=== PATIENT | male | born 1970 | race Caucasian/White ===

== ENCOUNTER 2018-11-16 11:07 | Emergency (ER) | payer SELFPAY ==
[~2018-11-16] VITALS: Ht 165.1 cm; Wt 68.0 kg
[2018-11-16 17:32] VITALS: BP 104/73
== END 2018-11-16 17:30 | disposition home or self-care (01) ==
LOC: ER 11:07 → EDBD 11:07 → ER 17:30
DX: F10.229 Alcohol dependence with intoxication, unspecified (principal); Y90.9 Presence of alcohol in blood, level not specified
CPT/HCPCS: 99283

== ENCOUNTER 2024-04-09 16:19 | Emergency (ER) | payer SELFPAY ==
[~2024-04-09] VITALS: Ht 172.7 cm; Wt 64.0 kg
[2024-04-09 16:21] VITALS: TEMP 98.3; O2SAT 99
[2024-04-09 16:30] VITALS: BP 124/78; PULSE 110; RESP 16
== END 2024-04-09 19:03 | disposition home or self-care (01) ==
LOC: ER 16:19
DX: F10.229 Alcohol dependence with intoxication, unspecified (principal); Y90.9 Presence of alcohol in blood, level not specified
CPT/HCPCS: 99283

== ENCOUNTER 2024-04-10 07:59 | Emergency (ER) | payer SELFPAY ==
[~2024-04-10] VITALS: Ht 172.7 cm; Wt 68.0 kg
[2024-04-10 08:02] VITALS: BP 142/84; PULSE 85; RESP 18; TEMP 97.6; O2SAT 98
== END 2024-04-10 09:30 | disposition left against medical advice (07) ==
LOC: ER 08:05
DX: F10.20 Alcohol dependence, uncomplicated (principal); Z59.00 Homelessness unspecified; Y90.9 Presence of alcohol in blood, level not specified
CPT/HCPCS: 99283

== ENCOUNTER 2024-04-10 17:35 | Emergency (ER) | payer SELFPAY ==
[~2024-04-10] VITALS: Ht 177.8 cm; Wt 74.0 kg
[2024-04-10 17:38] VITALS: BP 120/76; PULSE 68; RESP 18; TEMP 98.2; O2SAT 100
== END 2024-04-10 23:54 | disposition home or self-care (01) ==
LOC: ER 17:35
DX: F10.129 Alcohol abuse with intoxication, unspecified (principal); Y90.9 Presence of alcohol in blood, level not specified
CPT/HCPCS: 82962; 99283

== ENCOUNTER 2024-04-12 21:13 | Inpatient (IN) | payer SELFPAY ==
[~2024-04-12] VITALS: Ht 61 cm; Wt 59.9 kg
[2024-04-13] VITALS (7 sets, daily range): BP systolic 100–122; BP diastolic 57–73; PULSE 70–91; RESP 17–20; TEMP 96.3–98.2
[2024-04-13 00:34] LABS: BASOPHILS % 0.2 % (0.0-2.0); DIFFERENTIAL COMMENT 0; EOSINOPHILS % 0.3 % (0.0-5.0); HEMATOCRIT. 38.1 % (42.0-52.0); HEMOGLOBIN. 12.5 g/dL (14.0-18.0); LYMPHOCYTES % 22.9 % (20.0-50.0); MEAN CORPUSCULAR HEMOGLOBIN 25.9 pg (28.0-32.0); MEAN CORPUSCULAR HGB CONC 32.7 g/dL (31.0-37.0); MEAN CORPUSCULAR VOLUME 79.1 fL (80.0-94.0); MEAN PLATELET VOLUME 8.5 fl (7.4-10.4); MONOCYTES % 6.6 % (2.0-8.0); PLATELET 123 x1000/uL (130-400); RED BLOOD CELL COUNT 4.81 mill/uL (4.7-6.1); RED CELL DISTRIBUTION WIDTH 21.9 % (11.6-14.6); WHITE BLOOD COUNT 6.1 x1000/uL (4.5-11.0)
[2024-04-13 00:40] LABS: CHLORIDE 97 mEq/L (98-107); POTASSIUM 4.1 mEq/L (3.5-5.1); SODIUM 138 mEq/L (136-145)
[2024-04-13 00:41] LABS: CALCIUM 8.8 mg/dL (8.7-10.4); CARBON DIOXIDE 28 mEq/L (21-32)
[2024-04-13 00:46] LABS: CREATININE 0.8 mg/dL (0.6-1.3); GLUCOSE 98 mg/dL (70-105); UREA NITROGEN BLOOD 12 mg/dL (9-23)
[2024-04-13] MEDS: SODIUM CHLORIDE 0.9% 1,000 ML IV ONE (01:39)
[2024-04-13] MEDS ORDERED: GUAIFENESIN 200MG/10ML SUGAR FREE UDC PO PRN (03:00)
[2024-04-13] MEDS ORDERED: DEXTROSE 50% WATER 50ML SYRINGE IV PRN (03:00)
[2024-04-13] MEDS ORDERED: ONDANSETRON HCL 4MG/2ML INJ IV PRN (03:00)
[2024-04-13] MEDS ORDERED: IPRATROPIUM/ALBUTEROL 0.5-3(2.5)MG/3ML NEB HHN PRN (03:00)
[2024-04-13] MEDS ORDERED: CLONIDINE 0.1MG TABLET PO PRN (03:00)
[2024-04-13] MEDS ORDERED: LORAZEPAM 0.5MG TABLET PO PRN (03:00)
[2024-04-13] MEDS ORDERED: ACETAMINOPHEN 325MG TABLET PO PRN (03:00)
[2024-04-13] MEDS ORDERED: DOCUSATE SODIUM 100MG CAPSULE PO PRN (03:00)
[2024-04-13] MEDS ORDERED: MAGNESIUM/ALUMINUM HYDROXIDE/SIMETHICONE 30ML UDC PO PRN (03:00)
[2024-04-13] MEDS: MVI, ADULT NO.1 10 ML, FOLIC ACID 1 MG, THIAMINE HCL 100 MG in SODIUM CHLORIDE 0.9% 1,0... IV SCH (04:56)
[2024-04-13 09:00] LABS: CARBON DIOXIDE 27 mEq/L (21-32); CHLORIDE 101 mEq/L (98-107); POTASSIUM 3.6 mEq/L (3.5-5.1); SODIUM 141 mEq/L (136-145)
[2024-04-13 09:01] LABS: CALCIUM 8.4 mg/dL (8.7-10.4)
[2024-04-13 09:03] LABS: BASOPHILS % 0.4 % (0.0-2.0); EOSINOPHILS % 1.4 % (0.0-5.0); HEMATOCRIT. 36.5 % (42.0-52.0); HEMOGLOBIN. 12.2 g/dL (14.0-18.0); LYMPHOCYTES % 18.3 % (20.0-50.0); MEAN CORPUSCULAR HEMOGLOBIN 26.4 pg (28.0-32.0); MEAN CORPUSCULAR HGB CONC 33.3 g/dL (31.0-37.0); MEAN PLATELET VOLUME 8.6 fl (7.4-10.4); MONOCYTES % 7.2 % (2.0-8.0); NEUTROPHILS % 72.7 % (40.0-76.0); PLATELET 106 x1000/uL (130-400); RED BLOOD CELL COUNT 4.62 mill/uL (4.7-6.1); RED CELL DISTRIBUTION WIDTH 22.2 % (11.6-14.6); WHITE BLOOD COUNT 4.3 x1000/uL (4.5-11.0)
[2024-04-13 09:05] LABS: CREATININE 0.6 mg/dL (0.6-1.3); GLUCOSE 79 mg/dL (70-105); IRON 36 ug/dL (65-175)
[2024-04-13 09:06] LABS: ALANINE AMINOTRANSFERASE 83 IU/L (10-49); AMMONIA < 17 uMol/L (<32); ASPARTATE AMINOTRANSFERASE 195 IU/L (<34); UREA NITROGEN BLOOD 11 mg/dL (9-23)
[2024-04-13 09:07] LABS: ALBUMIN 4.4 g/dL (3.2-4.8)
[2024-04-13 09:08] LABS: BILIRUBIN TOTAL 0.6 mg/dL (0.1-1.0); PROTEIN TOTAL 7.2 g/dL (6.0-8.3); TOTAL IRON BINDING CAPACITY 290 ug/dl (250-425)
[2024-04-13 09:17] LABS: FERRITIN 121 ng/mL (22-322); FOLIC ACID (FOLATE) SERUM > 20.00 ng/mL (>5.38); VITAMIN B12 SERUM 1128 pg/mL (211-911)
[2024-04-13 09:26] LABS: DIFFERENTIAL COMMENT 1
[2024-04-13 09:27] LABS: ADD RBC MORPHOLOGY YES
[2024-04-13 11:51] LABS: MICROCYTOSIS 1+; PLATELET ESTIMATE DECREASED
[2024-04-13 11:52] LABS: ANISOCYTOSIS 1+; HYPOCHROMASIA 1+
[2024-04-13 14:36] LABS: CLARITY URINE CLEAR (CLEAR); COLOR URINE DARK YELLOW (YELLOW); GLUCOSE URINE NEGATIVE (NEGATIVE); KETONES URINE 2+ (NEGATIVE); LEUKOCYTE ESTERASE URINE NEGATIVE (NEGATIVE); NITRITE URINE NEGATIVE (NEGATIVE); OCCULT BLOOD URINE NEGATIVE (NEGATIVE); PROTEIN URINE 1+ (NEGATIVE); SPECIFIC GRAVITY URINE 1.017 (1.005-1.030)
[2024-04-13 14:50] LABS: *AMPHETAMINES SCREEN URINE NEGATIVE (NEGATIVE); *BARBITURATES SCREEN URINE NEGATIVE (NEGATIVE); *BENZODIAZEPINES SCREEN URINE NEGATIVE (NEGATIVE); *COCAINE SCREEN URINE NEGATIVE (NEGATIVE); CANNABINOID URINE SCREEN NEGATIVE (NEGATIVE); OPIATES URINE SCREEN NEGATIVE (NEGATIVE)
[2024-04-13 14:51] LABS: ECSTASY MDMA SCREEN URINE NEGATIVE (NEGATIVE); METHADONE URINE SCREEN NEGATIVE (NEGATIVE); PHENCYCLIDINE URINE SCREEN NEGATIVE (NEGATIVE)
[2024-04-13 15:08] LABS: BACTERIA URINE 1+; SQUAMOUS EPITHELIAL CELL URINE FEW /lpf (RARE/1+); YEAST URINE NONE SEEN
[2024-04-13] MEDS ORDERED: LORAZEPAM 2MG/ML INJ IV PRN (17:15)
[2024-04-13] MEDS: SODIUM CHLORIDE 0.45% 1,000 ML IV SCH (17:53)
[2024-04-13] MEDS: CHLORDIAZEPOXIDE 25MG CAPSULE PO SCH (21:12)
[2024-04-14] VITALS: BP 118/78; PULSE 64; RESP 16; TEMP 98.8
[2024-04-14 04:00] VITALS: BP 115/65; PULSE 68; RESP 19; TEMP 98
[2024-04-14] MEDS: PANTOPRAZOLE 40MG DR TABLET PO SCH (06:59)
[2024-04-14 07:04] LABS: BASOPHILS % 0.4 % (0.0-2.0); HEMATOCRIT. 30.9 % (42.0-52.0); LYMPHOCYTES % 22.2 % (20.0-50.0); MEAN CORPUSCULAR HGB CONC 32.3 g/dL (31.0-37.0); MEAN CORPUSCULAR VOLUME 80.4 fL (80.0-94.0); MEAN PLATELET VOLUME 8.5 fl (7.4-10.4); MONOCYTES % 9.1 % (2.0-8.0); NEUTROPHILS % 67.3 % (40.0-76.0); PLATELET 85 x1000/uL (130-400); RED BLOOD CELL COUNT 3.84 mill/uL (4.7-6.1); RED CELL DISTRIBUTION WIDTH 21.3 % (11.6-14.6); WHITE BLOOD COUNT 3.2 x1000/uL (4.5-11.0)
[2024-04-14 07:10] LABS: CALCIUM 8.8 mg/dL (8.7-10.4); CARBON DIOXIDE 25 mEq/L (21-32); CHLORIDE 97 mEq/L (98-107); POTASSIUM 3.5 mEq/L (3.5-5.1); SODIUM 133 mEq/L (136-145)
[2024-04-14 07:13] LABS: T4 FREE 0.89 ng/dL (0.89-1.76); THYROID STIMULATING HORMONE 2.31 uIU/mL (0.55-4.78)
[2024-04-14 07:15] LABS: CREATININE 0.7 mg/dL (0.6-1.3)
[2024-04-14 07:16] LABS: GLUCOSE 79 mg/dL (70-105); UREA NITROGEN BLOOD 13 mg/dL (9-23)
[2024-04-14 07:17] LABS: CREATINE KINASE 347 IU/L (46-171)
[2024-04-14 07:18] LABS: PHOSPHORUS 3.5 mg/dL (2.5-4.9)
[2024-04-14 08:00] VITALS: BP 112/60; PULSE 69; RESP 16; RESP 18; TEMP 97.9
[2024-04-14] MEDS: THIAMINE HCL 100MG TABLET PO SCH (08:12)
[2024-04-14] MEDS: FOLIC ACID 1MG TABLET PO SCH (08:12)
[2024-04-14 12:00] VITALS: BP 110/60; PULSE 70; RESP 18; TEMP 98.9
[2024-04-14] MEDS: MAGNESIUM 2 G PREMIX 50 ML IV SCH (12:37)
[2024-04-14] MEDS: SODIUM CHLORIDE 0.9% 1,000 ML IV SCH (12:40)
[2024-04-14 16:00] VITALS: BP 109/65; PULSE 66; RESP 18; TEMP 97.7
[2024-04-14 20:00] VITALS: BP 107/71; PULSE 73; RESP 18; TEMP 98.8
[2024-04-15 07:46] VITALS: BP 112/76; PULSE 59; TEMP 97.8; O2SAT 98
[2024-04-15 08:00] VITALS: BP 112/76; PULSE 59; RESP 16; TEMP 97.8
== END 2024-04-15 10:40 | disposition home or self-care (01) | DRG 52 ==
LOC: ER 21:13 → 8WST 04-13 00:04 → 7EST 04-13 02:26
PROVIDERS: ADMIT Hospitalist; ATTEND Hospitalist
DX: G92.8 Other toxic encephalopathy (principal); F10.129 Alcohol abuse with intoxication, unspecified; Y90.8 Blood alcohol level of 240 mg/100 ml or more; R74.01 Elevation of levels of liver transaminase levels
CPT/HCPCS: 36415; 80048; 80053; 80305; 80320; 81003; 82140; 82550; 82607; 82728; 82746; 83036; 83540; 83550; 83735; 84100; 84439; 84443; 85025; 99285; J3411; J3475; J3490; J7030; G0480